=== PATIENT | male | born 1990 | race Caucasian/White ===

== ENCOUNTER 2017-01-18 11:55 | Emergency (ER) | payer BC ==
--- NOTE | 2017-01-18 12:10 | EDM.PDOC ---
ED HPI GENERAL MEDICAL PROBLEM - General Chief Complaint: ENT Problem Stated Complaint: SINUS COLD Time Seen by Provider: 01/18/17 12:06 Source of Information: Reports: Patient - History of Present Illness INITIAL COMMENTS - FREE TEXT/NARRATIVE: HISTORY AND PHYSICAL: History of present illness: Patient presents with several complaints He has sinus pain and pressure right greater than left over the last month has failed [id number] symptomatic treatments complains of nasal discharge and congestion He also has headaches secondary to above He complains of ear and jaw pain on the right, he does grind his teeth he has pain with pressure applied to TMJ on opening close of mouth No fever nausea vomiting chills sweats Review of systems: As per history of present illness and below otherwise all systems reviewed and negative. Past medical history: As per history of present illness and as reviewed below otherwise noncontributory. Surgical history: As per history of present illness and as reviewed below otherwise noncontributory. Social history: No reported history of drug or alcohol abuse. Family history: As per history of present illness and as reviewed below otherwise noncontributory. Physical exam: HEENT: Atraumatic, normocephalic, pupils reactive, negative for conjunctival pallor or scleral icterus, mucous membranes moist, throat clear, neck supple, nontender, trachea midline. Tympanic membranes clear no stridor no meningeal sign sinus pain right greater than left Lungs: Clear to auscultation, breath sounds equal bilaterally, chest nontender. Heart: S1S2, regular, negative for clicks, rubs, or JVD. Abdomen: Soft, nondistended, nontender. Negative for masses or hepatosplenomegaly. Negative for costovertebral tenderness. Pelvis: Stable nontender. Genitourinary: Deferred. Rectal: Deferred. Extremities: Atraumatic, negative for cords or calf pain. Neurovascular unremarkable. Neuro: Awake, alert, oriented. Cranial nerves II through XII unremarkable. Cerebellum unremarkable. Motor and sensory unremarkable throughout. Exam nonfocal. Diagnostics: [] Therapeutics: []Amoxicillin 875 by mouth twice a day #20 no refill OTC symptomatic therapies Impression: []Sinusitis TMJ Definitive disposition and diagnosis as appropriate pending reevaluation and review of above. Right Headache Pain Score (Numeric/FACES): 6 - Related Data Allergies Allergy/AdvReac Type Severity Reaction Status Date / Time No Known Allergies Allergy Verified 01/18/17 12:05 Home Meds: Home Meds . [No Known Home Meds] 01/18/17 [History] ED ROS GENERAL - Review of Systems Review Of Systems: ROS reveals no pertinent complaints other than HPI. ED EXAM, GENERAL - Physical Exam Exam: See Below Course - Vital Signs Last Recorded V/S: Last Vital Signs Temp 37.1 C 01/18/17 12:03 Pulse 99 01/18/17 12:03 Resp 18 01/18/17 12:03 BP 113/71 01/18/17 12:03 Pulse Ox 97 01/18/17 12:03 Departure - Departure Time of Disposition: 12:08 Disposition: Home, Self-Care 01 Condition: Good Clinical Impression: Sinusitis - Discharge Information Forms: ED Department Discharge Additional Instructions: Medication as prescribed Return if symptoms persist worsen or new concerning symptoms develop Follow-up with primary care for ENT in 2 weeks [facility] [address] [place] [id number] The following information is given to patients seen in the emergency department who are being discharged to home. This information is to outline your options for follow-up care. We provide all patients seen in our emergency department with a follow-up referral. The need for follow-up, as well as the timing and circumstances, are variable depending upon the specifics of your emergency department visit. If you don't have a primary care physician on staff, we will provide you with a referral. We always advise you to contact your personal physician following an emergency department visit to inform them of the circumstance of the visit and for follow-up with them and/or the need for any referrals to a consulting specialist. The emergency department will also refer you to a specialist when appropriate. This referral assures that you have the opportunity for follow-up care with a specialist. All of these measure are taken in an effort to provide you with optimal care, which includes your follow-up. Under all circumstances we always encourage you to contact your private physician who remains a resource for coordinating your care. When calling for follow-up care, please make the office aware that this follow-up is from your recent emergency room visit. If for any reason you are refused follow-up, please contact the [facility] emergency department at and asked to speak to the emergency department charge nurse.
== END 2017-01-18 12:20 | disposition home or self-care (01) ==
LOC: MW.ED 11:55
DX: J32.9 Chronic sinusitis, unspecified (principal); M26.609 Unspecified temporomandibular joint disorder, unspecified side
CPT/HCPCS: 99283

== ENCOUNTER 2018-03-21 00:15 | Emergency (ER) | payer BC ==
[2018-03-21] MEDS ORDERED: Diphtheria,Pertussis(Acell),Tetanus Vaccine 0.5 ML Syringe IM ONE (00:19)
[2018-03-21] MEDS ORDERED: Ondansetron 4 MG/2 ML SDV IVPUSH ONE (01:05)
[2018-03-21 01:07] LABS: CHLORIDE,CL 104 mmol/L (98-107); SODIUM,NA 140 mmol/L (136-148)
[2018-03-21] MEDS ORDERED: Ondansetron 4 MG/2 ML SDV ONE (01:07)
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
[2018-03-21 01:46] VITALS: BP 125/68
[2018-03-21] MEDS ORDERED: Lidocaine 1% 0 ML ONE (01:55)
[2018-03-21] MEDS ORDERED: Lidocaine 1% with EPINEPHrine 1:100,000 20 ML MDV ONE (01:55)
[2018-03-21] MEDS ORDERED: Lidocaine 1% with EPINEPHrine 1:100,000 10 ML MDV INJECT ONE (02:51)
--- NOTE | 2018-03-22 13:24 | CT ---
EXAM DATE: 03/21/18 PATIENT'S AGE: 27 Patient: JESSE HE Facility: [place], [place] Site . Site : 1990 Study: CT Head [id number]/19/2018 12:39:50 AM Ordering Physician: Doctor Mcallister Final Report: INDICATION: Change in mental status, LOC TECHNIQUE: CT head without contrast. COMPARISON: None FINDINGS: CSF spaces: Within normal limits for age. Brain parenchyma: Left temporal subarachnoid hemorrhage. Blood layering on the tentorium, left greater than right. Thin left hemispheric subdural hematoma measuring up to 2-3 millimeters in diameter. Effacement of the left hemispheric sulci compared to the right worrisome for diffuse edema. The midline shift. 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 The visualized orbits are grossly unremarkable. Nondisplaced fracture right knee zygomatic arch. Nondisplaced fracture right temporal bone extending into the adjacent right sphenoid bone. Adjacent scalp subcutaneous air. Right posterior parietal scalp hematoma. Trace pnuemocephalus right temporal lobe. IMPRESSION: Left temporal subarachnoid hemorrhage. Thin left hemispheric subdural hematoma measuring up to 2-3 millimeters. Blood layering over the tentorium left greater than right. Effacement of the left hemispheric sulci compared to the right worrisome for diffuse edema. Nondisplaced fracture right temporal bone extending into the adjacent sphenoid bone with adjacent scalp hematoma and subcutaneous air. Air-fluid level right sphenoid air cell. Nondisplaced fracture right mid zygomatic arch. Right posterior parietal scalp hematoma. Findings discussed on 03/21/2018 at 1:[address] Lima. Dictated by Mono Landis MD @ 03/21/2018 1:19:42 AM Dictated by: Mono Landis MD @ 03/21/2018 01:21:55 (Electronic Signature) Report Signed by Proxy. [facility]
--- NOTE | 2018-03-22 13:26 | CR ---
EXAM DATE: 03/21/18 PATIENT'S AGE: 27 Patient: JESSE HE Facility: [place], [place] Site . Site : 1990 Study: XRay Chest [id number]/19/2018 1:12:41 AM Ordering Physician: Doctor Mcallister Final Report: Indication: AMS. LOC. Technique: A single AP portable view of the chest was obtained. Comparison: None Findings: Backboard artifact is identified. Heart is normal in size. The lungs are clear. No infiltrate, pleural effusion, or pneumothorax is identified. Impression: No acute cardiopulmonary process. Dictated by Winnie Carranza MD @ Mar 21 2018 1:13AM (Electronic Signature) Report Signed by Proxy. JESSICA
--- NOTE | 2018-03-22 13:28 | CR ---
EXAM DATE: 03/21/18 PATIENT'S AGE: 27 Patient: JESSE HE Facility: [place], [place] Site . Site : 1990 Study: XRay Pelvis [id number]/19/2018 1:12:59 AM Ordering Physician: Doctor Mcallister Final Report: Indication: AMS. LOC. Technique: A AP view of the pelvis was obtained. Comparison: None Findings: Backboard artifact obscures bony detail. The femoral heads are seated within the acetabula. No definite acute fracture or subluxation is identified. Impression: No definite fracture. Dictated by Winnie Carranza MD @ Mar 21 2018 1:14AM (Electronic Signature) Report Signed by Proxy. JESSICA
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
== END 2018-03-21 03:05 | disposition other institution (70) ==
LOC: MW.ED 00:15
DX: S02.19XA Other fracture of base of skull, initial encounter for closed fracture (principal); S06.5X9A Traumatic subdural hemorrhage with loss of consciousness of unspecified duration, initial encounter; S06.6X9A Traumatic subarachnoid hemorrhage with loss of consciousness of unspecified duration, initial encounter; Y04.8XXA Assault by other bodily force, initial encounter; Y92.838 Other recreation area as the place of occurrence of the external cause
CPT/HCPCS: 36415; 70450; 71045; 72125; 72170; 80053; 85025; 85610; 90471; 90715; 93005; 96374; 99285; G0480; J2405

== ENCOUNTER 2022-01-26 05:22 | Emergency (ER) | payer BC, OTHER ==
[2022-01-26 05:35] VITALS: PULSE 73
[2022-01-26] MEDS ORDERED: Ondansetron 4 MG/2 ML SDV IVPUSH ONE (05:42)
[2022-01-26] MEDS ORDERED: LORazepam 2 MG/ML SDV IVPUSH ONE ×2 (05:42→06:38)
[2022-01-26] MEDS ORDERED: cloNIDine 0.1 MG Tab PO STA ×2 (05:43→06:38)
[2022-01-26] MEDS ORDERED: Sodium Chloride 0.9% 1,000 ML IV ONE (05:43)
[2022-01-26 06:09] LABS: CARBON DIOXIDE,CO2 25.4 mmol/L (21.0-32.0); POTASSIUM,K 4.2 mmol/L (3.5-5.1)
[2022-01-26] MEDS ORDERED: LORazepam 1 MG Tab PO ONE (08:11)
[2022-01-26] MEDS ORDERED: ClonazePAM 0.5 MG Tab PO ONE (08:16)
[2022-01-26 08:28] VITALS: BP 107/60
== END 2022-01-26 08:39 | disposition home or self-care (01) ==
LOC: MW.ED 05:22
DX: F11.23 Opioid dependence with withdrawal (principal)
CPT/HCPCS: 36415; 80053; 85025; 96361; 96374; 96375; 96376; 99284; 99284-25; A9270-GY; J2060; J2405; J7030

== ENCOUNTER 2022-04-13 05:56 | Emergency (ER) | payer BC ==
[2022-04-13] MEDS ORDERED: Amoxicillin/Clavulanate K 875-125 MG Tab PO ONE (06:24)
[2022-04-13 06:45] VITALS: BP 118/72; PULSE 88
== END 2022-04-13 06:44 | disposition home or self-care (01) ==
LOC: MW.ED 05:56
DX: R09.81 Nasal congestion (principal); H66.91 Otitis media, unspecified, right ear; Z72.0 Tobacco use
CPT/HCPCS: 99282; A9270

== ENCOUNTER 2023-03-17 23:25 | Emergency (ER) | payer BC ==
[2023-03-17] MEDS ORDERED: Sodium Chloride 0.9% 1,000 ML IV ONE ×2 (23:26→23:28)
[2023-03-17 23:37] LABS: BASOPHILS PERCENT AUTO 0.3 % (0.0-1.5); EOSINOPHILS ABSOLUTE AUTO 0.1 K/uL (0.0-0.7); EOSINOPHILS PERCENT AUTO 0.8 % (0.0-7.0); HEMATOCRIT 46.3 % (38.0-50.0); HEMOGLOBIN 16.5 g/dL (13.0-17.0); LYMPHOCYTES ABSOLUTE AUTO 3.9 K/uL (0.6-2.4); LYMPHOCYTES PERCENT AUTO 33.8 % (16.0-40.0); MEAN CORPUSCULAR HGB CONC 35.6 g/dL (31.0-37.0); MEAN CORPUSCULAR VOLUME 86.9 fL (80.0-98.0); MONOCYTES ABSOLUTE AUTO 1.2 K/uL (0.0-0.8); MONOCYTES PERCENT AUTO 10.4 % (0.0-15.0); NEUTROPHILS ABSOLUTE AUTO 6.3 K/uL (1.4-5.7); NEUTROPHILS PERCENT AUTO 54.7 % (48.0-80.0); NRBC ABSOLUTE 0 K/uL; PLATELET COUNT,PLT 180 K/uL (150-400); RED BLOOD CELL COUNT 5.33 M/uL (4.50-5.90); WHITE BLOOD CELL COUNT,WBC 11.45 K/uL (4.0-11.0)
[2023-03-17] MEDS ORDERED: Ketamine 500 mg/10 ML MDV IV ONE (23:44)
[2023-03-17] MEDS ORDERED: OLANZapine 20 MG in Water For Injection, Sterile 2.1 ML IM ONE (23:44)
[2023-03-18 00:15] LABS: A/G RATIO 1.2 (0.9-1.6); ALBUMIN 4.1 g/dL (3.4-5.0); BILIRUBIN TOTAL 0.3 mg/dL (0.2-1.0); CALCIUM 8.6 mg/dL (8.5-10.1); CREATININE 1.1 mg/dL (0.8-1.3); EST CRCL DRUG DOSING (CG) 104.58 mL/min; MAGNESIUM 1.7 mg/dL (1.8-2.4); POTASSIUM,K 4.1 mmol/L (3.5-5.1); PROTEIN TOTAL,TP 7.5 g/dL (6.4-8.2); TSH ULTRASENSITIVE 3.5 uIU/mL (0.36-3.74)
[2023-03-18 00:35] LABS: BILIRUBIN,URINE NEGATIVE (NEGATIVE); COLOR,URINE YELLOW; GLUCOSE,URINE NEGATIVE (NEGATIVE); KETONES,URINE NEGATIVE (NEGATIVE); LEUKOCYTE ESTERASE,URINE NEGATIVE (NEGATIVE); NITRITE,URINE NEGATIVE (NEGATIVE); OCCULT BLOOD,URINE MODERATE (NEGATIVE); PH,URINE 5.5 (5.0-8.0); PROTEIN,URINE NEGATIVE (NEGATIVE); UROBILINOGEN,URINE 0.2 EU/dL (<2.0)
[2023-03-18] MEDS ORDERED: OLANZapine 10 MG in Water For Injection, Sterile 2.1 ML IM ONE (00:43)
[2023-03-18 00:44] LABS: APPEARANCE,URINE HAZY
[2023-03-18 00:45] LABS: BACTERIA,URINE RARE (NEGATIVE); EPITHELIAL CELLS,URINE FEW (NONE-FEW); RBC,URINE 20-25 (0-2/HPF)
[2023-03-18 00:46] LABS: SALICYLATE 6.7 mg/dL (0.0-20.0)
[2023-03-18 00:51] LABS: AMPHETAMINES SCREEN, URINE NEGATIVE (CUTOFF=500); BARBITURATE SCREEN,URINE NEGATIVE (CUTOFF=200); BENZODIAZEPINES SCREEN,URINE NEGATIVE (CUTOFF=150); BUPRENORPHINE SCREEN,URINE NEGATIVE (CUTOFF=10); METHADONE SCREEN, URINE PRESUMPTIVE POSITIVE (CUTOFF=200); METHAMPHETAMINES SCREEN, URINE PRESUMPTIVE POSITIVE (CUTOFF=500); OXYCODONE SCREEN,URINE NEGATIVE (CUT0FF=100); PCP SCREEN,URINE NEGATIVE (CUTOFF=25); PROPOXYPHENE SCREEN,URINE NEGATIVE (CUTOFF=300); THC SCREEN,URINE 20 NG/ML NEGATIVE (CUTOFF=50)
[2023-03-18] MEDS ORDERED: ACETYLCYSTEINE IV STA ×2 (00:58)
[2023-03-18] MEDS ORDERED: DEXTROSE 5% IV STA ×2 (00:58)
[2023-03-18] MEDS ORDERED: WATER IV STA ×2 (00:58)
[2023-03-18 00:59] LABS: LACTIC ACID 2.1 mmol/L (0.4-2.0)
[2023-03-18] MEDS ORDERED: ACETYLCYSTEINE IV ONE ×4 (01:00→01:30)
[2023-03-18] MEDS ORDERED: DEXTROSE 5% IV ONE ×4 (01:00→01:30)
[2023-03-18] MEDS ORDERED: Acetylcysteine 10,000 MG in Dextrose 5% in Water 1,000 ML IV ONE ×2 (01:00)
[2023-03-18] MEDS ORDERED: WATER IV ONE ×4 (01:00→01:30)
[2023-03-18] MEDS ORDERED: LORazepam 2 MG/ML SDV IVPUSH ONE (01:27)
[2023-03-18] MEDS ORDERED: Sodium Chloride 0.9% 1,000 ML IV ONE (01:42)
[2023-03-18] MEDS ORDERED: Etomidate 2 MG/ML 20 ML SDV IVPUSH ONE (02:25)
[2023-03-18] MEDS ORDERED: Rocuronium 50 MG/5 ML Vial IV ONE (02:27)
[2023-03-18] MEDS ORDERED: propofoL 100 ML ONE (02:42)
[2023-03-18] MEDS: Rocuronium 50 MG/5 ML Vial ONE ×2 (02:45→03:37)
[2023-03-18] MEDS ORDERED: propofoL 100 ML IV SCH (03:15)
[2023-03-18 03:16] LABS: BASE EXCESS VENOUS -4.9 (-2.0-3.0); PH,VENOUS 7.3 (7.31-7.41)
[2023-03-18 03:40] LABS: INR 1.18 (0.86-1.11); PTT,PARTIAL THROMBOPLSTIN TIME 27.1 SEC (23.9-30.7)
[2023-03-18 03:47] LABS: A/G RATIO 1.1 (0.9-1.6); ALBUMIN 3.2 g/dL (3.4-5.0); BILIRUBIN TOTAL 0.3 mg/dL (0.2-1.0); CREATININE 0.9 mg/dL (0.8-1.3); EST CRCL DRUG DOSING (CG) 127.82 mL/min; PHOSPHORUS 2.1 mg/dL (2.6-4.7); POTASSIUM,K 3.4 mmol/L (3.5-5.1); PROTEIN TOTAL,TP 6.1 g/dL (6.4-8.2)
[2023-03-18 03:51] LABS: ACETAMINOPHEN 188.3 ug/mL
[2023-03-18] MEDS ORDERED: Propofol 200 MG/20 ML SDV ONE (05:56)
[2023-03-18] MEDS ORDERED: Propofol 200 MG/20 ML SDV IVPUSH ONE (05:56)
[2023-03-18 06:18] VITALS: PULSE 82
[2023-03-18 06:37] VITALS: BP 104/70
== END 2023-03-18 07:10 ==
LOC: MW.ED 23:25
DX: T39.1X1A Poisoning by 4-Aminophenol derivatives, accidental (unintentional), initial encounter (principal); F15.10 Other stimulant abuse, uncomplicated; F14.10 Cocaine abuse, uncomplicated; R45.1 Restlessness and agitation; F17.210 Nicotine dependence, cigarettes, uncomplicated
CPT/HCPCS: 31500; 36415; 43752; 51702; 70450; 71045; 72125; 80053; 80143; 80179; 80305; 80307; 81001; 82140; 82550; 82803; 83605; 83690; 83735; 84100; 84443; 84484; 85025; 85610; 85730; 93005; 96361; 96365; 96366; 96367; 96368; 96372; 96375; 96376; 99285; J0132; J2060; J2405; J2704; J3490; J7030; J7060; 93010; 99291

== ENCOUNTER 2024-10-13 18:23 | Emergency (ER) | payer SELFPAY ==
[2024-10-13 18:37] VITALS: PULSE 96
[2024-10-13 18:44] LABS: BASOPHILS ABSOLUTE AUTO 0.03 K/uL (0.00-0.20); BASOPHILS PERCENT AUTO 0.3 % (0.0-1.0); EOSINOPHILS ABSOLUTE AUTO 0.01 K/uL (0.00-0.45); EOSINOPHILS PERCENT AUTO 0.1 % (0.0-6.0); HEMATOCRIT 46.2 % (42.0-52.0); HEMOGLOBIN 16.4 g/dL (14.0-18.0); IMMATURE GRAN ABSOLUTE AUTO 0.04 K/uL (0.00-0.05); IMMATURE GRAN PERCENT AUTO 0.3 % (0.0-0.4); LYMPHOCYTES PERCENT AUTO 11.3 % (24.0-44.0); MEAN CORPUSCULAR HEMOGLOBIN 30.1 pg (28.0-32.0); MEAN CORPUSCULAR HGB CONC 35.5 g/dL (32.0-36.0); MEAN CORPUSCULAR VOLUME 84.8 fL (83.0-99.0); MEAN PLATELET VOLUME 9.7 fL (9.4-12.4); MONOCYTES ABSOLUTE AUTO 0.66 K/uL (0.00-0.80); MONOCYTES PERCENT AUTO 5.7 % (0.0-8.0); NEUTROPHILS ABSOLUTE AUTO 9.51 K/uL (1.80-7.70); NEUTROPHILS PERCENT AUTO 82.3 % (41.0-71.0); PLATELET COUNT,PLT 203 K/uL (150-400); RED BLOOD CELL COUNT 5.45 M/uL (4.52-5.90); WHITE BLOOD CELL COUNT,WBC 11.55 K/uL (3.9-11.3)
[2024-10-13 19:17] LABS: A/G RATIO 1.4 (0.9-1.6); ACETAMINOPHEN <2.0 ug/mL; ALANINE AMINOTRANSFERASE,ALT 32 IU/L (14-63); ALBUMIN 4.4 g/dL (3.4-5.0); ALKALINE PHOSPHATASE 83 U/L (46-116); ASPARTATE AMNIOTRANSFERASE,AST 17 IU/L (15-37); BILIRUBIN TOTAL 0.5 mg/dL (0.2-1.0); BLOOD UREA NITROGEN,BUN 14 mg/dL (7.0-18.0); CALCIUM 9.1 mg/dL (8.5-10.1); CARBON DIOXIDE,CO2 24.6 mmol/L (21.0-32.0); CHLORIDE,CL 103 mmol/L (98-107); CREATININE 1.2 mg/dL (0.8-1.3); EST CRCL DRUG DOSING (CG) 88.63 mL/min; ETHANOL BLOOD MEDICAL 105 mg/dL; GLUCOSE RANDOM 96 mg/dL (74-106); MAGNESIUM 2.2 mg/dL (1.8-2.4); POTASSIUM,K 4.1 mmol/L (3.5-5.1); PROTEIN TOTAL,TP 7.5 g/dL (6.4-8.2); SODIUM,NA 142 mmol/L (136-148); T3 FREE 4.21 pg/mL (2.18-3.98); T4 FREE 1.07 ng/dL (0.76-1.46); TSH ULTRASENSITIVE 3.41 uIU/mL (0.36-3.74)
[2024-10-13 19:24] LABS: ESTIMATED GFR 82 mL/min (>60)
[2024-10-13 19:36] VITALS: BP 112/68
== END 2024-10-13 19:49 | disposition home or self-care (01) ==
LOC: MW.ED 18:23
DX: T40.602A Poisoning by unspecified narcotics, intentional self-harm, initial encounter (principal); F11.20 Opioid dependence, uncomplicated; Z86.59 Personal history of other mental and behavioral disorders; Z91.030 Bee allergy status; Z79.899 Other long term (current) drug therapy
CPT/HCPCS: 36415; 80053; 80143; 80179; 80307; 83735; 84439; 84443; 84481; 85025; 93005; 99284

== ENCOUNTER 2025-02-15 18:25 | Emergency (ER) | payer SELFPAY ==
[2025-02-15 18:44] LABS: BASOPHILS ABSOLUTE AUTO 0.05 K/uL (0.00-0.20); BASOPHILS PERCENT AUTO 0.8 % (0.0-1.0); EOSINOPHILS ABSOLUTE AUTO 0.03 K/uL (0.00-0.45); EOSINOPHILS PERCENT AUTO 0.5 % (0.0-6.0); IMMATURE GRAN ABSOLUTE AUTO 0.01 K/uL (0.00-0.05); IMMATURE GRAN PERCENT AUTO 0.2 % (0.0-0.4); LYMPHOCYTES ABSOLUTE AUTO 1.69 K/uL (1.00-4.80); LYMPHOCYTES PERCENT AUTO 26.7 % (24.0-44.0); MEAN PLATELET VOLUME 10.0 fL (9.4-12.4); MONOCYTES ABSOLUTE AUTO 0.56 K/uL (0.00-0.80); MONOCYTES PERCENT AUTO 8.9 % (0.0-8.0); NEUTROPHILS ABSOLUTE AUTO 3.98 K/uL (1.80-7.70); NEUTROPHILS PERCENT AUTO 62.9 % (41.0-71.0); NRBC ABSOLUTE 0.00 K/uL (0.00-0.02); NRBC PERCENT 0.0 /100WBC (0.0-0.2); PLATELET COUNT,PLT 208 K/uL (150-400); RED BLOOD CELL COUNT 5.31 M/uL (4.52-5.90); WHITE BLOOD CELL COUNT,WBC 6.32 K/uL (3.9-11.3)
[2025-02-15] MEDS: Ondansetron 4 MG/2 ML SDV IVPUSH ONE (18:44)
[2025-02-15] MEDS: fentaNYL 100 MCG/2 ML SDV IVPUSH ONE ×2 (18:46→21:17)
[2025-02-15 19:08] LABS: A/G RATIO 1.2 (0.9-1.6); ALANINE AMINOTRANSFERASE,ALT 20 IU/L (14-63); ASPARTATE AMNIOTRANSFERASE,AST 13 IU/L (15-37); BILIRUBIN TOTAL 0.4 mg/dL (0.2-1.0); BLOOD UREA NITROGEN,BUN 19 mg/dL (7.0-18.0); CARBON DIOXIDE,CO2 23.8 mmol/L (21.0-32.0); CHLORIDE,CL 101 mmol/L (98-107); CREATININE 1.3 mg/dL (0.8-1.3); EST CRCL DRUG DOSING (CG) 75.00 mL/min; ESTIMATED GFR 75 mL/min (>60); ETHANOL BLOOD MEDICAL 11 mg/dL; GLUCOSE RANDOM 88 mg/dL (74-106); POTASSIUM,K 3.9 mmol/L (3.5-5.1); PROTEIN TOTAL,TP 7.1 g/dL (6.4-8.2); SODIUM,NA 139 mmol/L (136-148)
[2025-02-15] MEDS: Iopamidol 755 MG/ML 500 ML Multipack Bottle IVPUSH STA (19:10)
[2025-02-15] MEDS: Diphtheria,Pertussis(Acell),Tetanus Vaccine 0.5 ML Syringe IM ONE (19:50)
[2025-02-15 20:07] LABS: APPEARANCE,URINE CLEAR; GLUCOSE,URINE NEGATIVE (NEGATIVE); OCCULT BLOOD,URINE NEGATIVE (NEGATIVE)
[2025-02-15 20:17] LABS: AMPHETAMINES SCREEN, URINE NEGATIVE (CUTOFF=500); BUPRENORPHINE SCREEN,URINE NEGATIVE (CUTOFF=10); METHADONE SCREEN, URINE NEGATIVE (CUTOFF=200); METHAMPHETAMINES SCREEN, URINE PRESUMPTIVE POSITIVE (CUTOFF=500); OXYCODONE SCREEN,URINE NEGATIVE (CUT0FF=100); PCP SCREEN,URINE NEGATIVE (CUTOFF=25); THC SCREEN,URINE 20 NG/ML PRESUMPTIVE POSITIVE (CUTOFF=50)
[2025-02-15] MEDS: Bacitracin Oint 1 GM U/D Packet TOP ONE (20:41)
[2025-02-15] MEDS: Ketorolac 30 MG/ML SDV IVPUSH ONE (21:17)
[2025-02-15] MEDS: ceFAZolin 1 GM in Water For Injection, Sterile 10 ML IVPUSH ONE (21:19)
[2025-02-16 00:48] VITALS: BP 110/70; PULSE 82
== END 2025-02-15 21:40 ==
LOC: MW.ED 18:25
DX: F15.10 Other stimulant abuse, uncomplicated (principal); F12.10 Cannabis abuse, uncomplicated; S82.831A Other fracture of upper and lower end of right fibula, initial encounter for closed fracture; S92.424A Nondisplaced fracture of distal phalanx of right great toe, initial encounter for closed fracture
CPT/HCPCS: 36415; 70450; 70486; 71260; 72125; 72128; 72131; 73562; 73590; 73630; 74177; 80053; 80305; 80307; 81003; 83690; 83735; 84484; 85025; 90471; 90715; 96361; 96374; 96375; 96376; 99284; J0690; J1885; J2405; J3010; J7030; Q9967